=== PATIENT | female | born 1985 | race Hispanic/Latino ===

== ENCOUNTER 2017-02-14 03:20 | Emergency (ER) | payer SELFPAY ==
[2017-02-14 03:20] VITALS: BMI 24.7
--- NOTE | 2017-02-14 03:45 | ED PDOC ---
HPI: Female Pain Time Seen by Provider: 02/14/17 03:40 Chief Complaint (Nursing): Female Genitourinary Chief Complaint (Provider): dysuria History Per: Patient History/Exam Limitations: no limitations Onset/Duration Of Symptoms: Days (1) Additional History Per: Patient Additional Complaint(s): 31 y/o female presents with dysuria x 1 day. Associated increased urine frequeny/urgency. Denies fever, nausea/vomiting, abdominal pain, back pain, hematuria, vaginal bleeding/discharge. Past Medical History Reviewed: Historical Data, Nursing Documentation, Vital Signs Vital Signs: Last Vital Signs Temp 98.6 F 02/14/17 03:32 Pulse 75 02/14/17 03:32 Resp 16 02/14/17 03:32 BP 113/49 L 02/14/17 03:32 Pulse Ox 98 02/14/17 03:32 - Medical History PMH: Diabetes (gestational DM), Gastritis, Hypercholesterolemia - Family History Family History: States: Unknown Family Hx - Immunization History Hx Tetanus Toxoid Vaccination: Yes Hx Influenza Vaccination: Yes Hx Pneumococcal Vaccination: Yes - Home Medications Home Medications: Ambulatory Orders Medication Instructions Recorded Acetaminophen with Codeine 1 tab PO Q4H PRN #22 tab 08/31/16 [Tylenol with Codeine No. 3 300 mg-30 mg] Naproxen [Naprosyn] 1 tab PO BID PRN #60 tab 08/31/16 Nitrofurantoin Macrocrystals 1 cap PO BID #14 cap 08/31/16 [Macrobid] Nitrofurantoin Macrocrystals 100 mg PO BID #13 cap 02/14/17 [Macrobid] Phenazopyridine HCl [Pyridium] 100 mg PO TID PRN #6 tab 02/14/17 - Allergies Allergies/Adverse Reactions: Allergies Allergy/AdvReac Type Severity Reaction Status Date / Time No Known Allergies Allergy Verified 08/31/16 18:13 Review of Systems ROS Statement: Except As Marked, All Systems Reviewed And Found Negative Genitourinary Female: Positive for: Dysuria, Frequency Physical Exam - Reviewed Nursing Documentation Reviewed: Yes Vital Signs Reviewed: Yes - Physical Exam Appears: Positive for: Well, Non-toxic, No Acute Distress Cardiovascular/Chest: Positive for: Regular Rate, Rhythm Respiratory: Positive for: Normal Breath Sounds Gastrointestinal/Abdominal: Positive for: Normal Exam - Laboratory Results Urine POC: Negative Urine dip results: Positive for: Leukocyte Esterase, Blood. Negative for: Nitrate - ECG O2 Sat by Pulse Oximetry: 98 - Progress ED Course And Treament: Patient given Pyridium, MAcrobid PO dose in ED; d/c with rx for same. Advised follow up PMD 2-3 days. Return to ED for worsening/concerning symptoms Disposition - Clinical Impression Clinical Impression: UTI (urinary tract infection) - Patient ED Disposition Is Patient to be Admitted: No Counseled Patient/Family Regarding: Studies Performed, Diagnosis, Need For Followup, Rx Given - Disposition Referrals: [facility] [Outside] Disposition: Routine/Home Disposition Time: 04:12 Condition: IMPROVED Prescriptions: Nitrofurantoin Macrocrystals [Macrobid] 100 mg PO BID #13 cap Phenazopyridine HCl [Pyridium] 100 mg PO TID PRN #6 tab PRN Reason: Urinary Discomt Instructions: Urinary Tract Infection in Women (ED) Print Language: EMIRATI
[2017-02-14 05:36] VITALS: BP 113/49; PULSE 75; RESP 16; TEMP 98.6; O2SAT 98
== END 2017-02-14 05:05 | disposition home or self-care (01) ==
LOC: H.ER 03:20
DX: N39.0 Urinary tract infection, site not specified (principal); R30.0 Dysuria; E11.9 Type 2 diabetes mellitus without complications; E78.00 Pure hypercholesterolemia, unspecified

== ENCOUNTER 2017-06-13 07:24 | Emergency (ER) | payer SELFPAY ==
[2017-06-13 07:36] VITALS: BP 112/66; PULSE 79; TEMP 98; O2SAT 100; BMI 27.9
--- NOTE | 2017-06-13 08:18 | ED PDOC ---
HPI: CCC, URI, Sore Throat Time Seen by Provider: 06/13/17 08:11 Chief Complaint (Nursing): ENT Problem Chief Complaint (Provider): Throat pain and fever. History Per: Patient History/Exam Limitations: no limitations Have you had recent travel within the past 21 days to any of the following countries: [place], [place], [place] or [place]?: No Onset/Duration Of Symptoms: Days (Pain started since last Saturday.), Gradual, Worse Since Current Symptoms Are (Timing): Still Present Location Of Pain: Throat Sick Contacts (Context): None Associated Symptoms: Fever, Chills, Sore Throat. denies: Cough, Sputum, Neck Pain, Sinus Drainage, Myalgias, Nasal Congestion, Nausea, Vomiting, Diarrhea Severity: Severe Pain Scale Rating Of: 8 Additional History Per: Patient Additional Complaint(s): CC: Throat pain and fever. HPI: 31 yo F with PMH of Hypercholesterolemia presents to the ED complaining of throat pain and fever since last Saturday, 07/11, burning, more localized in the right side, also refers pain during swallowing and hoarseness. Denies headache, cough, rhinorrhea, chest pain, shortness of breath, any injury or trauma recently. ROS: negative except as above. PMH: Hypercholesterolemia. PSH: none Allergies: NKA. Meds: none. Past Medical History Reviewed: Nursing Documentation, Vital Signs Vital Signs: Last Vital Signs Temp 98 F 06/13/17 07:35 Pulse 79 06/13/17 07:35 Resp BP 112/66 06/13/17 07:35 Pulse Ox 100 06/13/17 09:24 - Medical History PMH: Diabetes (gestational DM), Gastritis, Hypercholesterolemia - Surgical History Surgical History: No Surg Hx - Family History Family History: States: Unknown Family Hx - Living Arrangements Living Arrangements: With Family - Social History Current smoker - smoking cessation education provided: No Alcohol: None Drugs: Denies - Immunization History Hx Tetanus Toxoid Vaccination: Yes Hx Influenza Vaccination: Yes Hx Pneumococcal Vaccination: Yes - Home Medications Home Medications: Ambulatory Orders Medication Instructions Recorded Acetaminophen with Codeine 1 tab PO Q4H PRN #22 tab 08/31/16 [Tylenol with Codeine No. 3 300 mg-30 mg] Naproxen [Naprosyn] 1 tab PO BID PRN #60 tab 08/31/16 Nitrofurantoin Macrocrystals 1 cap PO BID #14 cap 08/31/16 [Macrobid] Nitrofurantoin Macrocrystals 100 mg PO BID #13 cap 02/14/17 [Macrobid] Phenazopyridine HCl [Pyridium] 100 mg PO TID PRN #6 tab 02/14/17 Amoxicillin [Amoxil 500 mg Cap] 500 mg PO TID #30 cap 06/13/17 Naproxen [Naprosyn] 500 mg PO Q12H #20 tab 06/13/17 - Allergies Allergies/Adverse Reactions: Allergies Allergy/AdvReac Type Severity Reaction Status Date / Time No Known Allergies Allergy Verified 08/31/16 18:13 Review of Systems ROS Statement: Except As Marked, All Systems Reviewed And Found Negative Constitutional: Positive for: Fever, Chills. Negative for: Sweats, Weakness Eyes: Negative for: Pain, Vision Change ENT: Positive for: Throat Pain. Negative for: Ear Pain, Ear Discharge, Nose Pain, Nose Discharge, Nose Congestion Cardiovascular: Negative for: Chest Pain, Palpitations, Light Headedness Respiratory: Negative for: Cough, Shortness of Breath Gastrointestinal: Negative for: Nausea, Vomiting, Abdominal Pain Genitourinary Female: Negative for: Dysuria Musculoskeletal: Negative for: Neck Pain Skin: Negative for: Rash Neurological: Negative for: Weakness, Numbness, Headache, Dizziness Psych: Negative for: Anxiety Physical Exam - Reviewed Nursing Documentation Reviewed: Yes Vital Signs Reviewed: Yes - Physical Exam Appears: Positive for: Well, No Acute Distress Head Exam: Positive for: ATRAUMATIC, NORMOCEPHALIC Skin: Positive for: Normal Color, Warm, Dry Eye Exam: Positive for: Normal appearance, EOMI, PERRL. Negative for: Nystagmus ENT: Positive for: Pharynx Is (Erythematous, with swelling on R tonsil, no exudates.), Tonsillar Swelling. Negative for: Tonsillar Exudate Neck: Positive for: Normal, Supple Cardiovascular/Chest: Positive for: Regular Rate, Rhythm. Negative for: Murmur Respiratory: Positive for: Normal Breath Sounds Pulses-Carotid (L): 2+ Pulses-Carotid (R): 2+ Pulses-Dorsalis Pedis (L): 2+ Pulses-Dorsalis Pedis (R): 2+ Pulses-Femoral (L): 2+ Pulses-Femoral (R): 2+ Pulses-Post. Tibialis (L): 2+ Pulses-Post. Tibialis (R): 2+ Pulses-Radial (L): 2+ Pulses-Radial (R): 2+ Gastrointestinal/Abdominal: Positive for: Normal Exam, Bowel Sounds, Soft. Negative for: Tenderness Back: Positive for: Normal Inspection Extremity: Positive for: Normal ROM. Negative for: Calf Tenderness DTR - Knee (R): 2+ DTR - Knee (L): 2+ Neurologic/Psych: Positive for: Alert, staff services manager II-XII, Oriented - ECG O2 Sat by Pulse Oximetry: 100 - Progress ED Course And Treament: Impression: 31 yo F presents to the ED with throat pain and fever. Plan: Rapid strep test. Reevaluate. Medical Decision Making Medical Decision Making: Impression: 31 yo F presents to the ED with throat pain and fever. Plan: Rapid strep test : negative. Reevaluate. Reevaluation: Patient still has throat pain, rapid strep test is negative, throat culture ordered, will discharge with home treatment. Disposition - Clinical Impression Clinical Impression: Tonsillitis, Acute bacterial tonsillitis - Patient ED Disposition Is Patient to be Admitted: No Counseled Patient/Family Regarding: Diagnosis, Need For Followup, Rx Given - Disposition Referrals: [facility] [Outside] FAMILY PROVIDER,NO [Primary Care Provider] - Disposition: Routine/Home Disposition Time: 09:49 Condition: FAIR Prescriptions: Amoxicillin [Amoxil 500 mg Cap] 500 mg PO TID #30 cap Naproxen [Naprosyn] 500 mg PO Q12H #20 tab Instructions: Tonsillitis (ED) Print Language: BULGARIAN
== END 2017-06-13 10:10 | disposition home or self-care (01) ==
LOC: SUPCPDRO 07:24 → H.ER 07:24
DX: J03.90 Acute tonsillitis, unspecified (principal); E78.00 Pure hypercholesterolemia, unspecified

== ENCOUNTER 2017-08-21 09:04 | Emergency (ER) | payer SELFPAY ==
[2017-08-21 09:09] VITALS: BP 124/55; PULSE 76; O2SAT 99
[2017-08-21 09:10] VITALS: BMI 26.9
[2017-08-21 09:25] VITALS: RESP 18; TEMP 98
[2017-08-21 11:06] LABS: RBC URINE 10 /hpf (0-3); URINE BACTERIA MOD (<OCC); URINE BILIRUBIN NEGATIVE (NEGATIVE); URINE BLOOD SMALL (NEGATIVE); URINE COLOR YELLOW (YELLOW); URINE GLUCOSE (UA) NEG (Normal); URINE KETONE NEGATIVE (NEGATIVE); URINE LEUKOCYTE ESTERASE LARGE Leu/uL (Negative); URINE PROTEIN 30 mg/dL (NEGATIVE); URINE UROBILINOGEN 0.2-1.0 mg/dL (0.2-1.0); WBC URINE 67 /hpf (0-5)
--- NOTE | 2017-08-21 11:22 | ED PDOC ---
HPI: Female Pain Time Seen by Provider: 08/21/17 09:28 Chief Complaint (Nursing): Female Genitourinary History Per: Patient, [employer] ([employer]) History/Exam Limitations: no limitations Onset/Duration Of Symptoms: Gradual (1 WEEK) Current Symptoms Are (Timing): Still Present Severity: Moderate Quality Of Discomfort: Sharp Associated Symptoms: Urinary Symptoms. denies: Fever, Chills, Nausea, Vomiting , Diarrhea, Back Pain, Chest Pain, Constipation Alleviating Factors: None Additional History Per: Patient Additional Complaint(s): Patient reports that she was ;EFT FLANK pain and painful urination with streaks of blood in the urine. Patient denies fever. similar to renal stones in the past Past Medical History Reviewed: Historical Data, Nursing Documentation, Vital Signs Vital Signs: Last Vital Signs Temp 98.0 F 08/21/17 09:21 Pulse 76 08/21/17 09:21 Resp 18 08/21/17 09:21 BP 124/55 L 08/21/17 09:21 Pulse Ox 99 08/21/17 09:21 - Medical History PMH: Diabetes (gestational DM), Gastritis, Hypercholesterolemia - Family History Family History: States: Unknown Family Hx - Immunization History Hx Tetanus Toxoid Vaccination: Yes Hx Influenza Vaccination: Yes Hx Pneumococcal Vaccination: Yes - Home Medications Home Medications: Ambulatory Orders Medication Instructions Recorded Acetaminophen with Codeine 1 tab PO Q4H PRN #22 tab 08/31/16 [Tylenol with Codeine No. 3 300 mg-30 mg] Naproxen [Naprosyn] 1 tab PO BID PRN #60 tab 08/31/16 Nitrofurantoin Macrocrystals 1 cap PO BID #14 cap 08/31/16 [Macrobid] Nitrofurantoin Macrocrystals 100 mg PO BID #13 cap 02/14/17 [Macrobid] Phenazopyridine HCl [Pyridium] 100 mg PO TID PRN #6 tab 02/14/17 Amoxicillin [Amoxil 500 mg Cap] 500 mg PO TID #30 cap 06/13/17 Naproxen [Naprosyn] 500 mg PO Q12H #20 tab 06/13/17 Amoxicillin/Clavulanate [Augmentin 1 tab PO BID 14 Days tab 08/21/17 875 MG-125 MG] - Allergies Allergies/Adverse Reactions: Allergies Allergy/AdvReac Type Severity Reaction Status Date / Time No Known Allergies Allergy Verified 08/31/16 18:13 Review of Systems ROS Statement: Except As Marked, All Systems Reviewed And Found Negative Constitutional: Negative for: Fever, Chills Cardiovascular: Negative for: Chest Pain, Palpitations Respiratory: Negative for: Cough, Shortness of Breath Gastrointestinal: Positive for: Other (left flank pain). Negative for: Nausea, Vomiting, Abdominal Pain Genitourinary Female: Positive for: Dysuria, Hematuria. Negative for: Vaginal Discharge, Vaginal Bleeding Neurological: Negative for: Weakness, Numbness Physical Exam - Reviewed Nursing Documentation Reviewed: Yes Vital Signs Reviewed: Yes - Physical Exam Appears: Positive for: Uncomfortable Head Exam: Positive for: ATRAUMATIC, NORMAL INSPECTION, NORMOCEPHALIC Eye Exam: Positive for: Normal appearance, EOMI, PERRL Neck: Positive for: Normal, Painless ROM, Supple Cardiovascular/Chest: Positive for: Regular Rate, Rhythm. Negative for: Edema, Gallop, Murmur, Bradycardia, Tachycardia Respiratory: Positive for: Normal Breath Sounds. Negative for: Decreased Breath Sounds, Accessory Muscle Use, Crackles, Rales, Rhonchi, Stridor, Wheezing Gastrointestinal/Abdominal: Positive for: Normal Exam, Bowel Sounds, Soft. Negative for: Tenderness Back: Positive for: Normal Inspection. Negative for: L CVA Tenderness, R CVA Tenderness, Vertebral Tenderness Extremity: Positive for: Normal ROM. Negative for: Tenderness, Pedal Edema, Calf Tenderness, Deformity, Swelling Neurologic/Psych: Positive for: Alert, salon assistant II-XII, Oriented. Negative for: Motor/Sensory Deficits - Laboratory Results Result Diagrams: 08/21/17 11:25 08/21/17 11:25 - ECG O2 Sat by Pulse Oximetry: 99 Pulse Ox Interpretation: Normal - Progress ED Course And Treament: ct abd and pelvis reveals no acute problems. advise antibiotics close f/u with pmd, advise ibuprofen for pain. pt agree's with plan and leaves ambulatory and in good spirits. Re-evaluation Time: 15:00 Condition: Improved Disposition - Clinical Impression Clinical Impression: UTI (urinary tract infection) - Patient ED Disposition Is Patient to be Admitted: No Counseled Patient/Family Regarding: Studies Performed, Diagnosis - Disposition Referrals: [facility] [Outside] (2 to 3 days) Disposition: Routine/Home Disposition Time: 15:00 Condition: GOOD Prescriptions: Amoxicillin/Clavulanate [Augmentin 875 MG-125 MG] 1 tab PO BID 14 Days tab Instructions: Urinary Tract Infection in Women (ED) Forms: [facility] (Cypriot) Print Language: BRAZILIAN
[2017-08-21 11:49] LABS: BASO % 0.2 % (0.0-2.0); LYMPH # 1.7 K/uL (1.0-4.3); LYMPH % 34.8 % (20.0-40.0); MEAN CELL VOLUME 77.1 fl (81.0-99.0); MEAN CORPUSCULAR HEMOGLOBIN 25.2 pg (27.0-31.0); MEAN CORPUSCULAR HGB CONC 32.7 g/dL (33.0-37.0); MEAN PLATELET VOLUME 9.8 fl (7.2-11.7); MONO # 0.3 K/uL (0.0-0.8); MONO % 6.5 % (0.0-10.0); NEUT # 2.8 K/uL (1.8-7.0); NEUT % 57.5 % (50.0-75.0); NRBC % 0.1 % (0.0-0.0); RED CELL DISTRIBUTION WIDTH 14.6 % (11.5-14.5); WHITE BLOOD COUNT 4.9 K/uL (4.8-10.8)
[2017-08-21 11:52] LABS: ALB/GLOB RATIO 1.4 (1.0-2.1); ALKALINE PHOSPHATASE 94 U/L (38-126); ALT/SGPT 39 U/L (9-52); AMYLASE 105 U/L (30-110); AST/SGOT 20 U/L (14-36); BILIRUBIN,TOTAL 0.4 mg/dl (0.2-1.3); BLOOD UREA NITROGEN 10 mg/dl (7-17); CALCIUM 8.9 mg/dL (8.4-10.2); CARBON DIOXIDE 23 mmol/L (22-30); CHLORIDE 107 mmol/L (98-107); GFR AFRICAN-AMERICAN > 60; GLUCOSE,RANDOM 99 mg/dL (65-105); LIPASE 66 U/L (23-300); SODIUM 140 mmol/l (132-148); TOTAL PROTEIN 7.2 G/DL (6.3-8.2)
[2017-08-21 11:53] LABS: POTASSIUM 3.6 MMOL/L (3.6-5.0)
[2017-08-21] MEDS ORDERED: cefTRIAXone (Rocephin) 1 gm Inj ONE (13:48)
--- NOTE | 2017-08-21 15:59 | CT ---
PROCEDURE: CT scan of the abdomen and pelvis dated 08/21/2017. HISTORY: Left-sided flank pain. COMPARISON: Comparison made with CT scan of the abdomen and pelvis 08/31/2016. TECHNIQUE: Contiguous axial images of the abdomen and pelvis without oral or intravenous contrast. Coronal and Sagittal reformats generated. This CT exam was performed using one or more of the following dose reduction techniques: Automated exposure control, adjustment of the mA and/or located at according to patient size, and/or use of iterative reconstruction technique. Radiation dose: Total exam DLP = 591.35 mGy-cm. FINDINGS: LOWER THORAX: Lung bases clear. No infiltrate effusion or basilar pneumothorax. Tiny hiatal hernia. LIVER: Liver is mildly enlarged measuring nearly 19 cm in CC dimension. No obvious hepatic mass collection or calcification. . GALLBLADDER AND BILE DUCTS: Gallbladder is physiologically distended. No evidence of intraluminal gallbladder calculi. PANCREAS: The unenhanced pancreas appears grossly unremarkable within limitation of the study. No obvious pancreatic mass collection or calcification. No significant pancreatic ductal dilatation. SPLEEN: Spleen exhibits normal size and attenuation pattern without mass collection or calcification. . Small splenule seen along the adjacent to the posterior inferior margin of the main body of the spleen. ADRENALS: There are no adrenal lesions. KIDNEYS AND URETERS: Kidneys demonstrate relatively symmetric size. No evidence of nephrolithiasis or hydronephrosis. BLADDER: Urinary bladder is physiologically distended. No evidence of intraluminal urinary bladder calculi. REPRODUCTIVE: Uterus is slightly bulky in appearance. APPENDIX: What is felt to represent a normal appearing appendix best seen on coronal image number [id number] end at axial image number [id number]. . BOWEL: Evaluation of the bowel is limited due to the lack of oral contrast material. Stomach is distended with food debris liquid and air. Visualized loops of small bowel exhibit normal contour and caliber. No evidence acute mechanical small bowel obstruction. Moderate amount of stool seen throughout the large bowel suggesting mild fecal retention/ constipation. . PERITONEUM: Unremarkable. No fluid collection. No free air. Small fat containing umbilical hernia. LYMPH NODES: Unremarkable. No significant adenopathy VASCULATURE: Unremarkable. No aortic aneurysm. BONES: No fracture or destructive lesion. OTHER FINDINGS: None. IMPRESSION: Mild hepatomegaly. No evidence of nephrolithiasis or hydronephrosis. No evidence of intraluminal urinary bladder calculi. Findings consistent with mild constipation.
== END 2017-08-21 16:30 | disposition home or self-care (01) ==
LOC: H.ER 09:04
DX: N39.0 Urinary tract infection, site not specified (principal); E78.00 Pure hypercholesterolemia, unspecified
CPT/HCPCS: 74176; 80053; 81003; 81025; 82150; 83690; 85025; 96365; 99283; J0696

== ENCOUNTER 2018-04-19 12:21 | Emergency (ER) | payer SELFPAY ==
[2018-04-19 12:23] VITALS: BMI 26.9
[2018-04-19 12:29] VITALS: PULSE 81; O2SAT 100
--- NOTE | 2018-04-19 12:49 | ED PDOC ---
HPI: Female Pain Time Seen by Provider: 04/19/18 13:07 Chief Complaint (Nursing): Female Genitourinary Chief Complaint (Provider): Left sided abdominal pain History Per: Patient History/Exam Limitations: no limitations Onset/Duration Of Symptoms: Days (x1) Current Symptoms Are (Timing): Still Present Additional Complaint(s): 32 year old female presented to ED with complaints of spotting and mild left sided abdominal pain with onset of today. Patient reports she is 6 weeks and [facility] On May [facility], she has a follow up appointment at [facility]. PCP: none provided Past Medical History Reviewed: Historical Data, Nursing Documentation, Vital Signs Vital Signs: Last Vital Signs Temp 98.6 F 04/19/18 12:26 Pulse 81 04/19/18 12:26 Resp 16 04/19/18 12:26 BP 108/67 04/19/18 12:26 Pulse Ox 100 04/19/18 12:26 - Medical History PMH: Diabetes (gestational DM), Gastritis, Hypercholesterolemia - Surgical History Surgical History: No Surg Hx - Family History Family History: States: Unknown Family Hx - Immunization History Hx Tetanus Toxoid Vaccination: Yes Hx Influenza Vaccination: Yes Hx Pneumococcal Vaccination: Yes - Home Medications Home Medications: Ambulatory Orders Medication Instructions Recorded Acetaminophen with Codeine 1 tab PO Q4H PRN #22 tab 08/31/16 [Tylenol with Codeine No. 3 300 mg-30 mg] Naproxen [Naprosyn] 1 tab PO BID PRN #60 tab 08/31/16 Nitrofurantoin Macrocrystals 1 cap PO BID #14 cap 08/31/16 [Macrobid] Nitrofurantoin Macrocrystals 100 mg PO BID #13 cap 02/14/17 [Macrobid] Phenazopyridine HCl [Pyridium] 100 mg PO TID PRN #6 tab 02/14/17 Amoxicillin [Amoxil 500 mg Cap] 500 mg PO TID #30 cap 06/13/17 Naproxen [Naprosyn] 500 mg PO Q12H #20 tab 06/13/17 Amoxicillin/Clavulanate [Augmentin 1 tab PO BID 14 Days tab 08/21/17 875 MG-125 MG] - Allergies Allergies/Adverse Reactions: Allergies Allergy/AdvReac Type Severity Reaction Status Date / Time No Known Allergies Allergy Verified 08/31/16 18:13 Review of Systems ROS Statement: Except As Marked, All Systems Reviewed And Found Negative Gastrointestinal: Positive for: Abdominal Pain (mild left sided) Genitourinary Female: Positive for: Other (spotting) Physical Exam - Reviewed Nursing Documentation Reviewed: Yes Vital Signs Reviewed: Yes - Physical Exam Appears: Positive for: Non-toxic, No Acute Distress Head Exam: Positive for: ATRAUMATIC, NORMAL INSPECTION, NORMOCEPHALIC Eye Exam: Positive for: Normal appearance Neck: Positive for: Normal, Painless ROM Gastrointestinal/Abdominal: Positive for: Normal Exam, Soft, Other (Mild left lower quadrant pain). Negative for: Tenderness Extremity: Positive for: Normal ROM Neurologic/Psych: Positive for: Alert, Oriented - Laboratory Results Result Diagrams: 04/19/18 13:22 04/19/18 13:22 - ECG O2 Sat by Pulse Oximetry: 100 (RA) Pulse Ox Interpretation: Normal - Progress ED Course And Treament: PELVIC US: IMPRESSION: Nonspecific very small cystic structure within the endometrial cavity. Possible early intrauterine gestation. Cannot exclude ectopic on the basis of this examination. Followup with transvaginal pelvic ultrasound and serial beta HCG examination is advised. Medical Decision Making Medical Decision Making: Initial impression: mild left sided abdominal pain Initial Plan: Type and screen stat BMP Beta HCG CBC US transvaginal Scribe Attestation: Documented by Nelson Aparicio acting as a scribe for Tha Garza Provider Scribe Attestation: All medical record entries made by the Scribe were at my direction and personally dictated by me. I have reviewed the chart and agree that the record accurately reflects my personal performance of the history, physical exam, medical decision making, and the department course for this patient. I have also personally directed, reviewed, and agree with the discharge instructions and disposition. Disposition - Clinical Impression Clinical Impression: Threatened miscarriage in early - Patient ED Disposition Is Patient to be Admitted: No - Disposition Disposition: Routine/Home Disposition Time: 17:18 Condition: FAIR Additional Instructions: REGRESA EN 2 KLINE PARA REPETIR PRUEBA DE SHAE. Instructions: Threatened Miscarriage (DC) Forms: [employer] (Finnish) Print Language: GEORGIAN
[2018-04-19 13:44] LABS: BASO % 0.3 % (0.0-2.0); EOS # 0.1 K/uL (0.0-0.7); LYMPH # 1.7 K/uL (1.0-4.3); LYMPH % 32.2 % (20.0-40.0); MEAN CELL VOLUME 77.7 fl (81.0-99.0); MEAN CORPUSCULAR HEMOGLOBIN 26.4 pg (27.0-31.0); MEAN PLATELET VOLUME 10.2 fl (7.2-11.7); MONO # 0.4 K/uL (0.0-0.8); MONO % 6.9 % (0.0-10.0); NEUT # 3.1 K/uL (1.8-7.0); NEUT % 59.6 % (50.0-75.0); NRBC % 0.2 % (0.0-0.0); RBC 4.91 Mil/uL (3.80-5.20); RED CELL DISTRIBUTION WIDTH 14.5 % (11.5-14.5); WHITE BLOOD COUNT 5.2 K/uL (4.8-10.8)
[2018-04-19 13:58] LABS: BLOOD UREA NITROGEN 8 mg/dl (7-17); GFR AFRICAN-AMERICAN > 60; GFR NON-AFRICAN AMERICAN > 60
--- NOTE | 2018-04-19 16:14 | US ---
PROCEDURE: OB Pelvic Ultrasound HISTORY: r/o ectopic COMPARISON: None available. FINDINGS: UTERUS: 3 mm cystic structure within the endometrial cavity. Out of range for determination of age. Possible early gestational sac. No yolk sac or pole. No detectable cardiac activity. Crista-gestational hemorrhage: None. Uterus measures 6.6 x 6.3 x 4.7 cm. No mass CERVIX: Long and closed. No cervical abnormality seen. RIGHT OVARY: Measures 2.6 x 1.9 x 1.9 cm. No mass. Normal flow. LEFT OVARY: Measures 2.9 x 2.4 x 1.5 cm. No mass. Normal flow. FREE FLUID: None. OTHER FINDINGS: None. IMPRESSION: Nonspecific very small cystic structure within the endometrial cavity. Possible early intrauterine gestation. Cannot exclude ectopic on the basis of this examination. Followup with transvaginal pelvic ultrasound and serial beta HCG examination is advised.
[2018-04-19 17:36] VITALS: BP 110/68; RESP 17; TEMP 98.5
== END 2018-04-19 17:36 | disposition home or self-care (01) ==
LOC: H.ER 12:21
DX: O20.0 Threatened abortion (principal); Z3A.01 Less than 8 weeks gestation of pregnancy; O99.281 Endocrine, nutritional and metabolic diseases complicating pregnancy, first trimester; E78.00 Pure hypercholesterolemia, unspecified

== ENCOUNTER 2018-04-21 14:25 | Emergency (ER) | payer OTHER, SELFPAY ==
[2018-04-21 14:25] VITALS: BMI 26.9
[2018-04-21 14:39] VITALS: BP 110/69; PULSE 83; RESP 18; TEMP 98; O2SAT 99
--- NOTE | 2018-04-21 14:52 | ED PDOC ---
HPI: Female Pain Time Seen by Provider: 04/21/18 14:36 Chief Complaint (Nursing): Female Genitourinary Chief Complaint (Provider): Female Genitourinary History Per: Patient History/Exam Limitations: no limitations Onset/Duration Of Symptoms: Days (x 3) Current Symptoms Are (Timing): Still Present Quality Of Discomfort: Cramping, "Pain" Associated Symptoms: denies: Nausea, Vomiting, Diarrhea, Constipation, Urinary Symptoms Additional Complaint(s): 32 year old female () presents to the ED with vaginal bleeding for the last 3 days. Patient had 3 vaginal deliveries and 1 miscarriage. Currently, she is at 6 weeks and 4 days according to her LNMP. The bleeding initially started as spotting and has increased over the last 48 hours. She reports that she has soaked 3 pads today and developed mild cramping and pelvic pain. Patient was seen here 2 days ago for the similar symptoms, diagnosed with threatened miscarriage and advised to return today for repeat blood work. Denies nausea, vomiting, diarrhea, constipation, light headedness and urinary symptoms. PMD: [facility] Abnormal Vaginal Bleeding: Yes Last Menstral Period: 03/06/18 : 5 Para: 3 Past Medical History Reviewed: Historical Data, Nursing Documentation, Vital Signs Vital Signs: Last Vital Signs Temp 98.0 F 04/21/18 14:34 Pulse 83 04/21/18 14:34 Resp 18 04/21/18 14:34 BP 110/69 04/21/18 14:34 Pulse Ox 99 04/21/18 14:34 - Medical History PMH: Diabetes (gestational DM), Gastritis, Hypercholesterolemia - Surgical History Surgical History: No Surg Hx - Family History Family History: States: Diabetes - Social History Current smoker - smoking cessation education provided: No Alcohol: None Drugs: Denies - Immunization History Hx Tetanus Toxoid Vaccination: Yes Hx Influenza Vaccination: Yes Hx Pneumococcal Vaccination: Yes - Home Medications Home Medications: Ambulatory Orders Medication Instructions Recorded Acetaminophen with Codeine 1 tab PO Q4H PRN #22 tab 08/31/16 [Tylenol with Codeine No. 3 300 mg-30 mg] Naproxen [Naprosyn] 1 tab PO BID PRN #60 tab 08/31/16 Nitrofurantoin Macrocrystals 1 cap PO BID #14 cap 08/31/16 [Macrobid] Nitrofurantoin Macrocrystals 100 mg PO BID #13 cap 02/14/17 [Macrobid] Phenazopyridine HCl [Pyridium] 100 mg PO TID PRN #6 tab 02/14/17 Amoxicillin [Amoxil 500 mg Cap] 500 mg PO TID #30 cap 06/13/17 Naproxen [Naprosyn] 500 mg PO Q12H #20 tab 06/13/17 Amoxicillin/Clavulanate [Augmentin 1 tab PO BID 14 Days tab 08/21/17 875 MG-125 MG] - Allergies Allergies/Adverse Reactions: Allergies Allergy/AdvReac Type Severity Reaction Status Date / Time No Known Allergies Allergy Verified 08/31/16 18:13 Review of Systems ROS Statement: Except As Marked, All Systems Reviewed And Found Negative Genitourinary Female: Positive for: Vaginal Bleeding, Pelvic Pain (mild cramping and pain) Physical Exam - Reviewed Nursing Documentation Reviewed: Yes Vital Signs Reviewed: Yes - Physical Exam Appears: Positive for: Well, Non-toxic, No Acute Distress Head Exam: Positive for: ATRAUMATIC, NORMAL INSPECTION, NORMOCEPHALIC Skin: Positive for: Warm, Dry Eye Exam: Positive for: EOMI, PERRL Neck: Positive for: Painless ROM, Trachea Midline Respiratory: Negative for: Accessory Muscle Use, Respiratory Distress Gastrointestinal/Abdominal: Positive for: Normal Exam, Soft. Negative for: Tenderness, Mass, Guarding, Rebound Back: Positive for: Normal Inspection. Negative for: L CVA Tenderness, R CVA Tenderness Lymphatic: Negative for: Adenopathy Neurologic/Psych: Positive for: Alert. Negative for: Motor/Sensory Deficits - ECG O2 Sat by Pulse Oximetry: 99 (RA) Pulse Ox Interpretation: Normal Medical Decision Making Medical Decision Making: Time: 14:41 Impression: Vaginal bleeding early in Differential diagnoses include but are not limited to: Ectopic , threatened or complete miscarriage Initial Plan: --Beta-HCG --Urine preg --Urine dip --Transvag US After reviewing previous chart, patient's blood type is O+. Beta-HCG was 794 two days ago. No pole or gestational sac present at the time. US FINDINGS: UTERUS: Measures 4.2 x 6.6 x 7.9 cm. Normal in size and appearance. No fibroid or other mass lesion seen. ENDOMETRIUM: Measures 9.5 mm in diameter. Small saclike structure in the endometrial canal 3.2 mm. Similar finding was seen on the prior study from approximately 48 hours ago. No additional products of conception identified. CERVIX: Closed cervix 2.6 cm in length. RIGHT OVARY: Measures 2.4 x 2.8 cm. No solid mass. Normal flow. Multiple subcentimeter follicles. LEFT OVARY: Measures 1.4 x 3.0 cm. No solid mass. Normal flow. Multiple subcentimeter follicles. FREE FLUID: Trace free fluid identified in the pelvis/cul de sac. OTHER FINDINGS: None. IMPRESSION: Tiny saclike structure similar in size and configuration to the prior study . Overall, no interval change. Time: 16:58 --There is a slight decrease in Beta-HCG quantitative since last visit. Findings consistent with abnormal . Most likely patient will miscarriage. Will discuss findings with patient. I advise repeat US in 1 week or earlier if patient has severe pain or heavy bleeding. Scribe Attestation: Documented by Shannan Ca, acting as a scribe for Flor Paul MD Provider Scribe Attestation: All medical record entries made by the Scribe were at my direction and personally dictated by me. I have reviewed the chart and agree that the record accurately reflects my personal performance of the history, physical exam, medical decision making, and the department course for this patient. I have also personally directed, reviewed, and agree with the discharge instructions and disposition. Disposition - Clinical Impression Clinical Impression: Threatened in early - Disposition [facility] (LLAME A LA CLINICA POR LA MANANA A HACER MATILDE JULIAN POR ESTA SEMANA) Disposition: Routine/Home Disposition Time: 17:28 Condition: STABLE Additional Instructions: NECESITA RIPITAR PENNY ANALISIS DE SHAE EN DOS KLINE Y PENNY SONOGRAMA EN MATILDE SEMANA. VISITA A LA CLINICA A HACER ESTAS EXAMINES. REGRESA A LA MELITON DE EMERGENCIA INMEDIATO SI TIENES MUCHO DOLOR, SI ESTAS [place] MAS QUE MATILDE KOTEX CADA MATILDE HORA, O TE SIENTES GILBERT SI SE DESMAYA. Instructions: Threatened Miscarriage Print Language: NICARAGUAN
--- NOTE | 2018-04-21 16:51 | US ---
HISTORY: vag bleed preg r/o ectopic v threatened v complete COMPARISON: 04/19/2018. TECHNIQUE: Transvaginal only. Real -time technique with 2D, duplex and color Doppler FINDINGS: UTERUS: Measures 4.2 x 6.6 x 7.9 cm. Normal in size and appearance. No fibroid or other mass lesion seen. ENDOMETRIUM: Measures 9.5 mm in diameter. Small saclike structure in the endometrial canal 3.2 mm. Similar finding was seen on the prior study from approximately 48 hours ago. No additional products of conception identified. CERVIX: Closed cervix 2.6 cm in length. RIGHT OVARY: Measures 2.4 x 2.8 cm. No solid mass. Normal flow. Multiple subcentimeter follicles. LEFT OVARY: Measures 1.4 x 3.0 cm. No solid mass. Normal flow. Multiple subcentimeter follicles. FREE FLUID: Trace free fluid identified in the pelvis/cul de sac. OTHER FINDINGS: None. IMPRESSION: Tiny saclike structure similar in size and configuration to the prior study 04/19/2018. Overall, no interval change.
== END 2018-04-21 18:04 | disposition home or self-care (01) ==
LOC: H.ER 14:25
DX: O20.0 Threatened abortion (principal); O26.891 Other specified pregnancy related conditions, first trimester; E78.00 Pure hypercholesterolemia, unspecified

== ENCOUNTER 2018-04-23 11:33 | Emergency (ER) | payer OTHER, SELFPAY ==
[2018-04-23 11:33] VITALS: BMI 26.9
[2018-04-23 11:40] VITALS: BP 113/55; PULSE 79; RESP 16; TEMP 98.7; O2SAT 99
--- NOTE | 2018-04-23 12:02 | ED PDOC ---
HPI: Female Pain Time Seen by Provider: 04/23/18 11:55 Chief Complaint (Nursing): Female Genitourinary Chief Complaint (Provider): repeat labs History Per: Patient Additional Complaint(s): 32-year-old female presents for repeat beta Quant. Patient was seen 2 days ago and diagnosed with threatened miscarriage. She was seen 2 days prior to that visit for same issue. Patient has mild cramping abdominal pain with slight bleeding today and she states it feels like a regular period. PMD: none Past Medical History Reviewed: Historical Data, Nursing Documentation, Vital Signs Vital Signs: Last Vital Signs Temp 98.7 F 04/23/18 11:35 Pulse 79 04/23/18 11:35 Resp 16 04/23/18 11:35 BP 113/55 L 04/23/18 11:35 Pulse Ox 99 04/23/18 11:35 - Medical History PMH: Diabetes (gestational DM), Gastritis, Hypercholesterolemia Other PMH: - Surgical History Surgical History: No Surg Hx - Family History Family History: States: Diabetes - Living Arrangements Living Arrangements: With Family - Social History Current smoker - smoking cessation education provided: No Alcohol: None Drugs: Denies - Home Medications Home Medications: Ambulatory Orders Medication Instructions Recorded Acetaminophen with Codeine 1 tab PO Q4H PRN #22 tab 08/31/16 [Tylenol with Codeine No. 3 300 mg-30 mg] Naproxen [Naprosyn] 1 tab PO BID PRN #60 tab 08/31/16 Nitrofurantoin Macrocrystals 1 cap PO BID #14 cap 08/31/16 [Macrobid] Nitrofurantoin Macrocrystals 100 mg PO BID #13 cap 02/14/17 [Macrobid] Phenazopyridine HCl [Pyridium] 100 mg PO TID PRN #6 tab 02/14/17 Amoxicillin [Amoxil 500 mg Cap] 500 mg PO TID #30 cap 06/13/17 Naproxen [Naprosyn] 500 mg PO Q12H #20 tab 06/13/17 Amoxicillin/Clavulanate [Augmentin 1 tab PO BID 14 Days tab 08/21/17 875 MG-125 MG] - Allergies Allergies/Adverse Reactions: Allergies Allergy/AdvReac Type Severity Reaction Status Date / Time No Known Allergies Allergy Verified 08/31/16 18:13 Review of Systems ROS Statement: Except As Marked, All Systems Reviewed And Found Negative Constitutional: Negative for: Fever, Chills Gastrointestinal: Negative for: Nausea, Vomiting Genitourinary Female: Positive for: Vaginal Bleeding, Pelvic Pain, Other (here for repeat beta quant). Negative for: Dysuria, Incontinence, Hematuria Physical Exam - Reviewed Nursing Documentation Reviewed: Yes Vital Signs Reviewed: Yes - Physical Exam Appears: Positive for: Well, Non-toxic, No Acute Distress Skin: Negative for: Rash Eye Exam: Positive for: Normal appearance Cardiovascular/Chest: Positive for: Regular Rate, Rhythm Respiratory: Positive for: Normal Breath Sounds. Negative for: Wheezing, Respiratory Distress Gastrointestinal/Abdominal: Positive for: Soft. Negative for: Tenderness, Distended, Guarding, Rebound Back: Negative for: L CVA Tenderness, R CVA Tenderness Extremity: Positive for: Normal ROM Neurologic/Psych: Positive for: Alert, Oriented - Laboratory Results Urine POC: Positive Urine dip results: Positive for: Blood (large). Negative for: Leukocyte Esterase, Nitrate, Ketones, Glucose, Bilirubin, Protein - ECG O2 Sat by Pulse Oximetry: 99 Pulse Ox Interpretation: Normal Medical Decision Making Medical Decision Makin32 year old here for repeat beta quant Plan: Beta quant Urine dip Beta from 04/19/18 - 794.08 Beta from 04/21/18 - 743.62 Beta today: 686.85 Beta continues to trend down consistent with miscarriage. Patient was instructed to follow up next week with clinic for repeat US or return any time if acutely worse. Disposition - Clinical Impression Clinical Impression: Miscarriage - Patient ED Disposition Is Patient to be Admitted: No Counseled Patient/Family Regarding: Studies Performed, Diagnosis, Need For Followup - Disposition [facility] Disposition: Routine/Home Disposition Time: 13:58 Condition: STABLE Additional Instructions: Call clinic to arrange for follow up US next week or return to ED any time if acutely worse. Instructions: Miscarriage, Dealing With Miscarriage Forms: [employer] (Serbian) Print Language: MALDIVIAN
== END 2018-04-23 14:17 | disposition home or self-care (01) ==
LOC: H.ER 11:33
DX: O03.9 Complete or unspecified spontaneous abortion without complication (principal); E78.00 Pure hypercholesterolemia, unspecified

== ENCOUNTER 2018-07-24 16:10 | Emergency (ER) | payer SELFPAY ==
[2018-07-24 16:10] VITALS: BMI 26.9
[2018-07-24 16:26] VITALS: PULSE 72; O2SAT 100
--- NOTE | 2018-07-24 16:40 | ED PDOC ---
HPI: Female Pain Time Seen by Provider: 07/24/18 16:31 Chief Complaint (Nursing): Female Genitourinary Chief Complaint (Provider): dysuria History Per: Patient Onset/Duration Of Symptoms: Days (x1) Additional Complaint(s): Patient is a 32 y/o female who presents to the ED complaining of dysuria and hematuria for 2 days. She denies fever or chills. Patient does not think she is at risk for STD. She denies any back pain. PMD: [facility] Past Medical History Reviewed: Historical Data, Nursing Documentation, Vital Signs Vital Signs: Last Vital Signs Temp 98.5 F 07/24/18 16:25 Pulse 72 07/24/18 16:25 Resp 16 07/24/18 16:25 BP 110/70 07/24/18 16:25 Pulse Ox 100 07/24/18 16:25 - Medical History PMH: Gastritis, Hypercholesterolemia - Surgical History Surgical History: No Surg Hx - Family History Family History: States: Diabetes - Living Arrangements Living Arrangements: With Family - Social History Current smoker - smoking cessation education provided: No Alcohol: None Drugs: Denies - Home Medications Home Medications: Ambulatory Orders Medication Instructions Recorded Acetaminophen with Codeine 1 tab PO Q4H PRN #22 tab 08/31/16 [Tylenol with Codeine No. 3 300 mg-30 mg] Naproxen [Naprosyn] 1 tab PO BID PRN #60 tab 08/31/16 Nitrofurantoin Macrocrystals 1 cap PO BID #14 cap 08/31/16 [Macrobid] Nitrofurantoin Macrocrystals 100 mg PO BID #13 cap 02/14/17 [Macrobid] Phenazopyridine HCl [Pyridium] 100 mg PO TID PRN #6 tab 02/14/17 Amoxicillin [Amoxil 500 mg Cap] 500 mg PO TID #30 cap 06/13/17 Naproxen [Naprosyn] 500 mg PO Q12H #20 tab 06/13/17 Amoxicillin/Clavulanate [Augmentin 1 tab PO BID 14 Days tab 08/21/17 875 MG-125 MG] Nitrofurantoin Macrocrystals 100 mg PO BID #14 cap 07/24/18 [Macrobid] - Allergies Allergies/Adverse Reactions: Allergies Allergy/AdvReac Type Severity Reaction Status Date / Time No Known Allergies Allergy Verified 08/31/16 18:13 Review of Systems ROS Statement: Except As Marked, All Systems Reviewed And Found Negative Constitutional: Negative for: Fever, Chills Genitourinary Female: Positive for: Dysuria, Frequency, Hematuria. Negative for : Vaginal Discharge Physical Exam - Reviewed Nursing Documentation Reviewed: Yes Vital Signs Reviewed: Yes - Physical Exam Appears: Positive for: Well, Non-toxic, No Acute Distress Skin: Positive for: Normal Color Gastrointestinal/Abdominal: Positive for: Soft. Negative for: Tenderness, Distended, Guarding, Rebound Back: Negative for: L CVA Tenderness, R CVA Tenderness Extremity: Positive for: Normal ROM Neurologic/Psych: Positive for: Alert, Oriented. Negative for: Motor/Sensory Deficits - Laboratory Results Urine POC: Negative Urine dip results: Positive for: Leukocyte Esterase (large). Negative for: Blood, Nitrate, Ketones, Glucose, Bilirubin, Protein - ECG O2 Sat by Pulse Oximetry: 100 (RA) Pulse Ox Interpretation: Normal Medical Decision Making Medical Decision Making: Time: 16:36 Impression: 32 y/o female with dysuria and frequency Initial Plan: --ED dipstick --Urine --Chlamydia/GC --Urine culture Rx macrobid given. Advised clinic follow up in 2-3 days. ~ Scribe Attestation: Documented by Roland Mak, acting as a scribe for Flor Escobar PA-C Provider Scribe Attestation: All medical record entries made by the Scribe were at my direction and personally dictated by me. I have reviewed the chart and agree that the record accurately reflects my personal performance of the history, physical exam, medical decision making, and the department course for this patient. I have also personally directed, reviewed, and agree with the discharge instructions and disposition. Disposition - Clinical Impression Clinical Impression: UTI (urinary tract infection) - Patient ED Disposition Is Patient to be Admitted: No Counseled Patient/Family Regarding: Studies Performed, Diagnosis, Need For Followup, Rx Given - Disposition Referrals: [facility] [Outside] Disposition: Routine/Home Disposition Time: 16:59 Condition: STABLE Additional Instructions: Take prescription meds as directed. Drink plenty of fluids. Tylenol or Advil for pain as needed. Follow-up with clinic in 2-3 days. Prescriptions: Nitrofurantoin Macrocrystals [Macrobid] 100 mg PO BID #14 cap Instructions: Urinary Tract Infection, Adult (DC) Forms: [email or web address] (Korean) Print Language: GIBRALTARIAN
[2018-07-24 17:06] VITALS: BP 108/75; RESP 13; TEMP 98
== END 2018-07-24 17:06 | disposition home or self-care (01) ==
LOC: H.ER 16:10
DX: N39.0 Urinary tract infection, site not specified (principal); E78.00 Pure hypercholesterolemia, unspecified

== ENCOUNTER 2018-09-20 09:54 | Emergency (ER) | payer SELFPAY ==
[2018-09-20 10:01] VITALS: BP 107/69; PULSE 73; RESP 18; TEMP 97.3; O2SAT 99
[2018-09-20 10:02] VITALS: BMI 29.9
--- NOTE | 2018-09-20 10:49 | ED PDOC ---
HPI: Female Pain Time Seen by Provider: 09/20/18 10:15 Chief Complaint (Provider): Dysuria History Per: Patient History/Exam Limitations: no limitations Onset/Duration Of Symptoms: Days (2 days) Current Symptoms Are (Timing): Still Present Additional Complaint(s): Pt. with dysuria, frequency of urination. Feels like the last time she got a uti. No abd pain, back pain, nausea, vomit, diarrhea, fever. Past Medical History Reviewed: Nursing Documentation, Vital Signs Vital Signs: Last Vital Signs Temp 97.3 F L 09/20/18 10:01 Pulse 73 09/20/18 10:01 Resp 18 09/20/18 10:01 BP 107/69 09/20/18 10:01 Pulse Ox 99 09/20/18 10:01 - Medical History Other PMH: uti - Surgical History Surgical History: No Surg Hx - Family History Family History: States: Unknown Family Hx - Immunization History Hx Tetanus Toxoid Vaccination: Yes Hx Influenza Vaccination: Yes Hx Pneumococcal Vaccination: Yes - Home Medications Home Medications: Ambulatory Orders Medication Instructions Recorded Acetaminophen with Codeine 1 tab PO Q4H PRN #22 tab 08/31/16 [Tylenol with Codeine No. 3 300 mg-30 mg] Naproxen [Naprosyn] 1 tab PO BID PRN #60 tab 08/31/16 Nitrofurantoin Macrocrystals 1 cap PO BID #14 cap 08/31/16 [Macrobid] Nitrofurantoin Macrocrystals 100 mg PO BID #13 cap 02/14/17 [Macrobid] Phenazopyridine HCl [Pyridium] 100 mg PO TID PRN #6 tab 02/14/17 Amoxicillin [Amoxil 500 mg Cap] 500 mg PO TID #30 cap 06/13/17 Naproxen [Naprosyn] 500 mg PO Q12H #20 tab 06/13/17 Amoxicillin/Clavulanate [Augmentin 1 tab PO BID 14 Days tab 08/21/17 875 MG-125 MG] Nitrofurantoin Macrocrystals 100 mg PO BID #14 cap 07/24/18 [Macrobid] Ibuprofen [Motrin] 600 mg PO TID 7 Days tab 09/20/18 Nitrofurantoin Macrocrystals 100 mg PO BID #10 cap 09/20/18 [Macrobid] - Allergies Allergies/Adverse Reactions: Allergies Allergy/AdvReac Type Severity Reaction Status Date / Time No Known Allergies Allergy Verified 09/20/18 10:17 Review of Systems Constitutional: Negative for: Fever, Weakness Cardiovascular: Negative for: Chest Pain Respiratory: Negative for: Cough, Shortness of Breath Gastrointestinal: Negative for: Nausea, Vomiting, Abdominal Pain, Diarrhea Genitourinary Female: Positive for: Dysuria, Frequency. Negative for: Incontinence, Hematuria, Vaginal Discharge, Vaginal Bleeding Musculoskeletal: Negative for: Neck Pain, Shoulder Pain, Arm Pain Skin: Negative for: Rash Neurological: Negative for: Weakness Physical Exam - Reviewed Nursing Documentation Reviewed: Yes Vital Signs Reviewed: Yes - Physical Exam Appears: Positive for: Well, Non-toxic, No Acute Distress Cardiovascular/Chest: Positive for: Regular Rate, Rhythm Respiratory: Positive for: CNT, Normal Breath Sounds Gastrointestinal/Abdominal: Positive for: Normal Exam, Soft. Negative for: Tenderness Back: Positive for: Normal Inspection. Negative for: L CVA Tenderness, R CVA Tenderness Extremity: Positive for: Normal ROM. Negative for: Tenderness, Pedal Edema Neurologic/Psych: Positive for: Alert, Oriented - ECG O2 Sat by Pulse Oximetry: 99 - Progress ED Course And Treament: 1052: Leuk pos. Will tx for uti. AAOx3. Pain free. Tolerated po. FU with pcp. Disposition - Clinical Impression Clinical Impression: UTI (urinary tract infection) - Patient ED Disposition Is Patient to be Admitted: No Counseled Patient/Family Regarding: Studies Performed, Diagnosis, Need For Followup, Rx Given - Disposition Referrals: [facility] [Outside] - 09/22/18 Disposition: Routine/Home Disposition Time: 10:53 Condition: STABLE Additional Instructions: Return if not better in 3 days. Prescriptions: Ibuprofen [Motrin] 600 mg PO TID 7 Days tab Nitrofurantoin Macrocrystals [Macrobid] 100 mg PO BID #10 cap Instructions: Urinary Tract Infection, Adult (DC) Print Language: DUTCH
== END 2018-09-20 12:00 | disposition home or self-care (01) ==
LOC: H.ER 09:54
DX: N39.0 Urinary tract infection, site not specified (principal)